=== PATIENT | male | born 1975 | race Caucasian/White ===

== ENCOUNTER → 2020-09-04 | Outpatient (REF) | payer OTHER ==
[2020-09-04 12:33] LABS: HEMATOCRIT 51.1 % (42.0-52.0); HEMOGLOBIN 17.5 g/dl (13.5-17.5); MEAN CORPUSCULAR HEMOGLOBIN 30.7 pg (27.0-33.0); MEAN CORPUSCULAR HGB CONC 34.2 g/dl (32.0-36.5); MEAN CORPUSCULAR VOLUME 89.6 fl (80.0-96.0); PLATELET COUNT, AUTOMATED 210 10^3/uL (150-450); WHITE BLOOD COUNT 7.4 10^3/uL (4.0-10.0)
[2020-09-04 13:11] LABS: ALT/SGPT 39 U/L (12-78); BILIRUBIN,TOTAL 0.6 MG/DL (0.2-1.0); BLOOD UREA NITROGEN 16 MG/DL (7-18); CALCIUM LEVEL 9.3 MG/DL (8.5-10.1); CARBON DIOXIDE LEVEL 28 MEQ/L (21-32); CHLORIDE LEVEL 104 MEQ/L (98-107); CREATININE FOR GFR 1.06 MG/DL (0.70-1.30); FERRITIN 138 NG/ML (26-388); GLOMERULAR FILTRATION RATE > 60.0 (>60); GLUCOSE, FASTING 116 MG/DL (70-100); IRON (FE) 109 UG/DL (65-175); PERCENT SATURATION 32.2 % (19.7-50.0); POTASSIUM SERUM 4.8 MEQ/L (3.5-5.1); SODIUM LEVEL 137 MEQ/L (136-145); TOTAL IRON BINDING CAPACITY 338 UG/DL (250-450); TOTAL PROTEIN 7.7 GM/DL (6.4-8.2)
== END ==
LOC: M SFHCADAM 08:58
PROVIDERS: ATTEND Physician Assistant
DX: K92.2 Gastrointestinal hemorrhage, unspecified (principal)

== ENCOUNTER → 2020-09-17 | Outpatient (REF) | payer OTHER ==
[2020-09-17 12:56] LABS: INR 0.93; PARTIAL THROMBOPLASTIN TIME 27.1 SECONDS (24.2-38.5); PROTHROMBIN TIME 12.7 SECONDS (12.5-14.3)
[2020-09-17 13:16] LABS: HEMOGLOBIN A1c 5.9 %
[2020-09-17 13:20] LABS: CHOLESTEROL RISK RATIO 5.06 (<5); FREE T4 1.15 NG/DL (0.76-1.46); THYROID STIMULATING HORMONE 2.67 uIU/ML (0.358-3.740)
== END ==
LOC: M SFHCADAM 08:07
PROVIDERS: ATTEND Physician Assistant
DX: E78.5 Hyperlipidemia, unspecified (principal); K92.2 Gastrointestinal hemorrhage, unspecified; R73.9 Hyperglycemia, unspecified

== ENCOUNTER → 2020-11-26 | Outpatient (CLI) | payer OTHER ==
[~2020-11-26] MED LIST: COQ1200C PO; FISH306C PO; GASTROGRAFIN SOLUTION 30ML (Q9963) As Ordered ONE; ISOVUE-370 76% 100ML VIAL As Ordered ONE; METO50TA7 PO; NOXI1TAB PO; RAMI1CAP22 PO; ROSU20TA5 PO; VITA500C24 PO; ZINC1TAB2 PO
--- NOTE | 2020-11-26 10:20 | REP ---
INDICATION: VASCULAR DISORDER OF INTESTINE, ? CELIAC ARTERY OC COMPARISON: None TECHNIQUE: Axial noncontrast images from the lung bases to the pubic symphysis with coronal and sagittal reformations were obtained in arterial phase of enhancement using angiographic technique. 100 cc Isovue 370 intravenous contrast material administered without complication. Post processing coronal and sagittal MIP reformations as well as volume rendered CT aortic angiogram obtained at the workstation. This CT examination was performed using the following dose reduction techniques: Automated exposure control, adjustment of mA and/or kv according to the patient's size, and use of iterative reconstruction technique. FINDINGS: The abdominal aorta and associated arterial vasculature are relatively normal in appearance and without atherosclerotic disease. No aortic aneurysm or dissection. The celiac axis and superior mesenteric artery both have a normal patent lumen and demonstrate normal angulation at their origin. There is no angiographic evidence to suggest celiac arterial occlusion or median arcuate ligament syndrome. Liver, spleen, pancreas, bilateral adrenal glands, kidneys and gallbladder are normal. The enteric system is without obstruction or acute inflammatory process. Normal terminal ileum identified in the right lower quadrant. Few scattered sigmoid diverticula noted without acute diverticulitis. Of note, there are mildly prominent lymph nodes in the mesentery of the sigmoid colon which are nonspecific and of uncertain clinical significance. Pelvis demonstrates normal bladder and age-appropriate prostate/seminal vesicles. Small fat containing left inguinal hernia noted. No ascites. No retroperitoneal adenopathy. No free air. Musculoskeletal structures are intact. Lung bases are clear. IMPRESSION: 1. Normal angiographic evaluation of the aorta and branch vessels including celiac axis and superior mesenteric artery. No evidence for celiac artery occlusions syndrome or median arcuate ligament syndrome. 2. No acute abdominopelvic pathology appreciated. 3. Few mildly prominent lymph nodes in the mesentery of the sigmoid colon which are otherwise nonspecific. Colonoscopy may be warranted to exclude the possibility of an underlying enteric pathologic process. <Electronically signed by Adryan Rudd > 11/26/20 [id number]
== END ==
LOC: M RAD 09:24
PROVIDERS: ATTEND Internal Medicine Gastroenterology
DX: K55.9 Vascular disorder of intestine, unspecified (principal); R19.7 Diarrhea, unspecified; K92.1 Melena
CPT/HCPCS: 74174; Q9967

== ENCOUNTER → 2020-11-26 | Outpatient (CLI) | payer OTHER ==
[~2020-11-26] MED LIST changes: -GASTROGRAFIN SOLUTION 30ML (Q9963) As Ordered ONE; -ISOVUE-370 76% 100ML VIAL As Ordered ONE
== END ==
LOC: M LABSMTC 12:26
PROVIDERS: ATTEND Anesthesiology
DX: Z01.812 Encounter for preprocedural laboratory examination (principal); Z20.822 Contact with and (suspected) exposure to COVID-19

== ENCOUNTER 2020-12-01 09:21 | Day surgery (SDC) | payer OTHER ==
[~2020-12-01] VITALS: Ht 175.3 cm; Wt 103.9 kg
[~2020-12-01 09:21] MED LIST changes: -COQ1200C PO; -FISH306C PO; +LIDOCAINE 2% 100MG/5ML SDV (FOR ANES.) As Ordered ONE; -NOXI1TAB PO; +NS 1,000 ML IV ONE; -VITA500C24 PO; -ZINC1TAB2 PO; +propofoL 200 MG/20 ML VIAL As Ordered ONE
[2020-12-01] MEDS ORDERED: VITA500C24 PO (09:43)
[2020-12-01] MEDS ORDERED: COQ1200C PO (09:43)
[2020-12-01] MEDS ORDERED: ZINC1TAB2 PO (09:43)
[2020-12-01] MEDS ORDERED: NOXI1TAB PO (09:43)
[2020-12-01] MEDS ORDERED: FISH306C PO (09:43)
--- NOTE | 2020-12-01 11:26 | ROOR ---
Patient Name: Avel Wright Procedure Date: 12/01/2020 10:48 AM Date of : 1975 Age: 45 Room: [facility] Gender: Male Note Status: Finalized Procedure: Colonoscopy Indications: Clinically significant diarrhea of unexplained origin, Hematochezia Providers: Jose NAGEL MD Referring MD: Selvin Suárez MD Requesting Provider: Medicines: Monitored Anesthesia Care Complications: No immediate complications. Procedure: Pre-Anesthesia Assessment: - The heart rate, respiratory rate, oxygen saturations, blood pressure, adequacy of pulmonary ventilation, and response to care were monitored throughout the procedure. The Colonoscope was introduced through the anus and advanced to 15 cm into the ileum. The colonoscopy was performed without difficulty. The patient tolerated the procedure well. The quality of the bowel preparation was fair. Findings: Inflammation characterized by congestion (edema), erythema and granularity was found in a continuous and circumferential pattern from the rectum to the sigmoid colon. This was moderate in severity. Biopsies were taken with a cold forceps for histology. The exam was otherwise normal throughout the examined colon. The terminal ileum appeared normal. Background biopsies were taken for histology with a cold forceps from the colon and terminal ileum. These biopsy specimens were sent to Pathology. Impression: - Preparation of the colon was suboptimal/fair. - Proctosigmoid colitis. Segmental inflammation was found from the rectum to the sigmoid colon (0-40 cm from anal verge), suggestive of ulcerative colitis. This was moderate in severity. Biopsied. - The perianal exam, the rest of the colon and 15 cm of the terminal ileum are normal. - Background biopsies were taken from the colon and terminal ileum. Recommendation: - Use Lialda 1.2 gm at 4 tabs PO daily. - Return to my office in 1 month. To discuss todays findings, my office will call you in the next few days to schedule a follow up appointment. - (the script was sent to your pharmacy on file) Procedure Code(s): --- Professional --- 44678, Colonoscopy, flexible; with biopsy, single or multiple Diagnosis Code(s): --- Professional --- K92.1, Melena (includes Hematochezia) R19.7, Diarrhea, unspecified K52.9, Noninfective gastroenteritis and colitis, unspecified CPT copyright 2019 [employer]. All rights reserved. The codes documented in this report are preliminary and upon principal accounts clerk review may be revised to meet current compliance requirements. Jose Nagel MD Jose NAGEL MD 12/01/2020 11:26:43 AM Electronically signed by Jose NAGEL MD Number of Addenda: 0 Note Initiated On: 12/01/2020 10:48 AM Estimated Blood Loss: Estimated blood loss: none.
[2020-12-01 11:40] VITALS: BP 136/97
== END 2020-12-01 11:51 | disposition home or self-care (01) ==
LOC: M OPP 09:21
PROVIDERS: ATTEND Internal Medicine Gastroenterology
DX: K52.9 Noninfective gastroenteritis and colitis, unspecified (principal); K92.1 Melena; D12.2 Benign neoplasm of ascending colon; D12.3 Benign neoplasm of transverse colon; D12.4 Benign neoplasm of descending colon; D12.7 Benign neoplasm of rectosigmoid junction; I10 Essential (primary) hypertension; E78.5 Hyperlipidemia, unspecified; G47.30 Sleep apnea, unspecified; Z95.1 Presence of aortocoronary bypass graft; Z95.5 Presence of coronary angioplasty implant and graft; Z79.899 Other long term (current) drug therapy; Z80.3 Family history of malignant neoplasm of breast; Z83.3 Family history of diabetes mellitus

== ENCOUNTER → 2021-01-16 | Outpatient (CLI) | payer OTHER ==
[~2021-01-16] MED LIST changes: +COQ1200C PO; +FISH306C PO; -LIDOCAINE 2% 100MG/5ML SDV (FOR ANES.) As Ordered ONE; +NOXI1TAB PO; -NS 1,000 ML IV ONE; +VITA500C24 PO; +ZINC1TAB2 PO; -propofoL 200 MG/20 ML VIAL As Ordered ONE
== END ==
LOC: M LAB 09:13
PROVIDERS: ATTEND Internal Medicine Gastroenterology
DX: K51.318 Ulcerative (chronic) rectosigmoiditis with other complication (principal)

== ENCOUNTER → 2021-09-09 | Outpatient (REF) | payer OTHER ==
[2021-09-09 14:19] LABS: CHOLESTEROL RISK RATIO 4.675 (<5)
== END ==
LOC: M LABDRWAD 12:49
PROVIDERS: ATTEND Internal Medicine Cardiovascular Disease
DX: I25.10 Atherosclerotic heart disease of native coronary artery without angina pectoris (principal); E78.2 Mixed hyperlipidemia

== ENCOUNTER → 2021-12-23 | Outpatient (REF) | payer OTHER ==
[2021-12-23 13:02] LABS: BASO # 0.1 10^3/uL (0.0-0.2); BASO % 0.9 % (0.0-1.0); EOS # 0.1 10^3/uL (0.0-0.5); EOS % 1.8 % (0.0-3.0); HEMATOCRIT 43.3 % (42.0-52.0); HEMOGLOBIN 14.8 g/dl (13.5-17.5); LYMPH # 2.2 10^3/uL (1.5-5.0); LYMPH % 39.2 % (24.0-44.0); MEAN CORPUSCULAR HEMOGLOBIN 30.1 pg (27.0-33.0); MEAN CORPUSCULAR HGB CONC 34.2 g/dl (32.0-36.5); MEAN CORPUSCULAR VOLUME 88.2 fl (80.0-96.0); MONO # 0.7 10^3/uL (0.0-0.8); MONO % 13.1 % (2.0-8.0); NEUTROPHILS # 2.5 10^3/uL (1.5-8.5); NEUTROPHILS % 44.8 % (36.0-66.0); PLATELET COUNT, AUTOMATED 208 10^3/uL (150-450); RED BLOOD COUNT 4.91 10^6/uL (4.30-6.10); WHITE BLOOD COUNT 5.5 10^3/uL (4.0-10.0)
[2021-12-23 13:43] LABS: ALBUMIN 4.1 GM/DL (3.2-5.2); ALT/SGPT 78 U/L (12-78); BILIRUBIN,TOTAL 0.5 MG/DL (0.2-1.0); BLOOD UREA NITROGEN 19 MG/DL (7-18); CALCIUM LEVEL 9.5 MG/DL (8.5-10.1); CARBON DIOXIDE LEVEL 27 MEQ/L (21-32); CHLORIDE LEVEL 109 MEQ/L (98-107); CREATININE FOR GFR 1.05 MG/DL (0.70-1.30); FREE T4 1.04 NG/DL (0.76-1.46); GLOMERULAR FILTRATION RATE > 60.0 (>60); GLUCOSE, FASTING 122 MG/DL (70-100); POTASSIUM SERUM 4.8 MEQ/L (3.5-5.1); SODIUM LEVEL 140 MEQ/L (136-145); TOTAL PROTEIN 7.1 GM/DL (6.4-8.2)
== END ==
LOC: M SFHCADAM 08:05
PROVIDERS: ATTEND Physician Assistant
DX: Z13.1 Encounter for screening for diabetes mellitus (principal); K51.90 Ulcerative colitis, unspecified, without complications; E78.5 Hyperlipidemia, unspecified

== ENCOUNTER → 2021-12-23 | Outpatient (REF) | payer OTHER ==
[2021-12-23 13:36] LABS: CHOLESTEROL RISK RATIO 3.368 (<5)
[2021-12-24 09:20] LABS: LDL DIRECT 68 mg/dL (0-99)
== END ==
LOC: M LABDRWAD 12:14
PROVIDERS: ATTEND Nurse Practitioner Adult Health
DX: I25.10 Atherosclerotic heart disease of native coronary artery without angina pectoris (principal); E78.2 Mixed hyperlipidemia

== ENCOUNTER → 2022-01-01 | Outpatient (CLI) | payer OTHER ==
[2022-01-01 12:50] LABS: BLOOD UREA NITROGEN 20 MG/DL (7-18); CARBON DIOXIDE LEVEL 27 MEQ/L (21-32); CHLORIDE LEVEL 106 MEQ/L (98-107); CREATININE FOR GFR 1.11 MG/DL (0.70-1.30); GLOMERULAR FILTRATION RATE > 60.0 (>60); GLUCOSE, FASTING 114 MG/DL (70-100); POTASSIUM SERUM 4.9 MEQ/L (3.5-5.1); SODIUM LEVEL 137 MEQ/L (136-145)
== END ==
LOC: M ADAMS 09:31
PROVIDERS: ATTEND Internal Medicine Cardiovascular Disease
DX: R79.9 Abnormal finding of blood chemistry, unspecified (principal); I25.10 Atherosclerotic heart disease of native coronary artery without angina pectoris; I10 Essential (primary) hypertension

== ENCOUNTER → 2022-05-14 | Outpatient (CLI) | payer OTHER ==
[2022-05-14 16:30] LABS: BASO # 0.1 10^3/uL (0.0-0.2); BASO % 0.5 % (0.0-1.0); EOS % 0.4 % (0.0-3.0); HEMATOCRIT 53.4 % (42.0-52.0); LYMPH # 1.9 10^3/uL (1.5-5.0); LYMPH % 18.9 % (24.0-44.0); MEAN CORPUSCULAR HGB CONC 33.7 g/dl (32.0-36.5); MEAN CORPUSCULAR VOLUME 86.1 fl (80.0-96.0); MONO # 0.8 10^3/uL (0.0-0.8); MONO % 8.5 % (2.0-8.0); NEUTROPHILS % 71.4 % (36.0-66.0); PLATELET COUNT, AUTOMATED 203 10^3/uL (150-450); WHITE BLOOD COUNT 9.8 10^3/uL (4.0-10.0)
[2022-05-14 16:55] LABS: ALBUMIN 4.1 GM/DL (3.2-5.2); ALT/SGPT 42 U/L (12-78); BILIRUBIN,TOTAL 0.9 MG/DL (0.2-1.0); BLOOD UREA NITROGEN 15 MG/DL (7-18); CALCIUM LEVEL 9.5 MG/DL (8.5-10.1); CARBON DIOXIDE LEVEL 26 MEQ/L (21-32); CHLORIDE LEVEL 106 MEQ/L (98-107); CREATININE FOR GFR 1.35 MG/DL (0.70-1.30); GLOMERULAR FILTRATION RATE > 60.0 (>60); GLUCOSE, FASTING 108 MG/DL (70-100); POTASSIUM SERUM 4.2 MEQ/L (3.5-5.1); SODIUM LEVEL 138 MEQ/L (136-145); TOTAL PROTEIN 7.2 GM/DL (6.4-8.2)
[2022-05-14 18:25] LABS: HEPATITIS B SURFACE ANTIGEN NEGATIVE (NEGATIVE)
== END ==
LOC: M ADAMS 13:18
PROVIDERS: ATTEND Internal Medicine Gastroenterology
DX: K51.30 Ulcerative (chronic) rectosigmoiditis without complications (principal)

== ENCOUNTER → 2022-07-01 | Outpatient (CLI) | payer OTHER | LOC: M PLALAB 09:58 | PROVIDERS: ATTEND Internal Medicine Infectious Disease | DX: R76.12 Nonspecific reaction to cell mediated immunity measurement of gamma interferon antigen response without active tuberculosis (principal); I51.7 Cardiomegaly ==

== ENCOUNTER → 2022-07-29 | Outpatient (REF) | payer OTHER ==
[2022-07-29 13:38] LABS: HEMATOCRIT 56.1 % (42.0-52.0); HEMOGLOBIN 18.7 g/dl (13.5-17.5); MEAN CORPUSCULAR HEMOGLOBIN 29.4 pg (27.0-33.0); MEAN CORPUSCULAR HGB CONC 33.3 g/dl (32.0-36.5); MEAN CORPUSCULAR VOLUME 88.3 fl (80.0-96.0); PLATELET COUNT, AUTOMATED 215 10^3/uL (150-450); RED BLOOD COUNT 6.35 10^6/uL (4.30-6.10); WHITE BLOOD COUNT 6.9 10^3/uL (4.0-10.0)
[2022-07-29 14:16] LABS: ALT/SGPT 43 U/L (12-78); BILIRUBIN,TOTAL 1.1 MG/DL (0.2-1.0); BLOOD UREA NITROGEN 14 MG/DL (7-18); CALCIUM LEVEL 9.1 MG/DL (8.5-10.1); CARBON DIOXIDE LEVEL 29 MEQ/L (21-32); CHLORIDE LEVEL 104 MEQ/L (98-107); CHOLESTEROL LEVEL 125 MG/DL (<200); CHOLESTEROL RISK RATIO 3.378 (<5); CREATININE FOR GFR 1.18 MG/DL (0.70-1.30); GLOMERULAR FILTRATION RATE > 60.0 (>60); GLUCOSE, FASTING 121 MG/DL (70-100); HDL CHOLESTEROL 37 MG/DL (>40); LDL CHOLESTEROL 70 MG/DL (<100); NON-HDL-C 88 MG/DL; POTASSIUM SERUM 4.9 MEQ/L (3.5-5.1); SODIUM LEVEL 135 MEQ/L (136-145); TOTAL PROTEIN 7.2 GM/DL (6.4-8.2); TRIGLYCERIDES LEVEL 92 MG/DL (<150)
[2022-07-29 14:58] LABS: HEMOGLOBIN A1c 5.8 %
== END ==
LOC: M SFHCADAM 07:56
PROVIDERS: ATTEND Physician Assistant
DX: R73.01 Impaired fasting glucose (principal); I25.10 Atherosclerotic heart disease of native coronary artery without angina pectoris; E78.5 Hyperlipidemia, unspecified; G47.33 Obstructive sleep apnea (adult) (pediatric); K51.90 Ulcerative colitis, unspecified, without complications; E34.9 Endocrine disorder, unspecified; Z12.5 Encounter for screening for malignant neoplasm of prostate

== ENCOUNTER 2022-11-04 08:01 | Outpatient (CLI) | payer OTHER ==
[~2022-11-04] VITALS: Ht 175.3 cm; Wt 103.4 kg
[~2022-11-04 08:01] MED LIST changes: +VEDOLIZUMAB 300 MG in NS 250 ML IV ONE
[2022-11-04 09:05] VITALS: BP 131/86
[2022-11-04 09:11] VITALS: BP 152/84
[2022-11-05] MEDS ORDERED: ISOVUE-370 76% 100ML VIAL As Ordered ONE (13:47)
== END 2022-11-04 09:30 ==
LOC: M INFU 08:01
PROVIDERS: ATTEND Internal Medicine Gastroenterology
DX: K51.90 Ulcerative colitis, unspecified, without complications (principal)
CPT/HCPCS: 96365; J3380

== ENCOUNTER 2022-11-22 08:04 | Outpatient (CLI) | payer OTHER ==
[~2022-11-22] VITALS: Ht 175.3 cm; Wt 102.3 kg
[2022-11-22 08:10] VITALS: BP 133/76
[2022-11-22] MEDS ORDERED: ASPI81TA26 PO (09:03)
[2022-11-22 09:12] VITALS: BP 135/65
== END 2022-11-22 09:15 | disposition home or self-care (01) ==
LOC: M INFU 08:04
PROVIDERS: ATTEND Internal Medicine Gastroenterology
DX: K51.90 Ulcerative colitis, unspecified, without complications (principal)
CPT/HCPCS: 96365; J3380

== ENCOUNTER 2023-02-14 08:25 | Outpatient (CLI) | payer OTHER ==
[~2023-02-14] VITALS: Ht 175.3 cm; Wt 103.4 kg
[2023-02-14 08:25] VITALS: BP 132/81
[~2023-02-14 08:25] MED LIST changes: +ASPI81TA26 PO
[2023-02-14 09:30] VITALS: BP 131/72
== END 2023-02-14 09:40 | disposition home or self-care (01) ==
LOC: M INFU 08:25
PROVIDERS: ATTEND Internal Medicine Gastroenterology
DX: K51.90 Ulcerative colitis, unspecified, without complications (principal)
CPT/HCPCS: 96365; J3380

== ENCOUNTER 2023-04-11 08:05 | Outpatient (CLI) | payer OTHER ==
[~2023-04-11] VITALS: Ht 175.3 cm; Wt 103.4 kg
[2023-04-11 08:05] VITALS: BP 138/89; O2SAT 96
[2023-04-11 09:12] VITALS: BP 177/106; O2SAT 95
== END 2023-04-11 09:15 | disposition home or self-care (01) ==
LOC: M INFU 08:05
PROVIDERS: ATTEND Internal Medicine Gastroenterology
DX: K51.90 Ulcerative colitis, unspecified, without complications (principal)
CPT/HCPCS: 96365; J3380

== ENCOUNTER 2023-06-06 08:00 | Outpatient (CLI) | payer OTHER ==
[~2023-06-06 08:00] MED LIST changes: -ROSU20TA5 PO; +ROSU20TA61 PO
[2023-06-06 08:08] VITALS: BP 144/92; TEMP 98.2; O2SAT 94
[2023-06-06 09:16] VITALS: BP 136/82; TEMP 98.3; O2SAT 94
== END 2023-06-06 09:18 | disposition home or self-care (01) ==
LOC: M INFU 08:00
PROVIDERS: ATTEND Internal Medicine Gastroenterology
DX: K51.90 Ulcerative colitis, unspecified, without complications (principal)
CPT/HCPCS: 96365; J3380

== ENCOUNTER → 2023-09-19 | Outpatient (REF) | payer OTHER ==
[~2023-09-19] MED LIST changes: -VEDOLIZUMAB 300 MG in NS 250 ML IV ONE
[2023-09-19 13:18] LABS: HEMATOCRIT 56.4 % (42.0-52.0); HEMOGLOBIN 19.4 g/dl (13.5-17.5); MEAN CORPUSCULAR HEMOGLOBIN 30.6 pg (27.0-33.0); MEAN CORPUSCULAR HGB CONC 34.4 g/dl (32.0-36.5); MEAN CORPUSCULAR VOLUME 88.8 fl (80.0-96.0); PLATELET COUNT, AUTOMATED 188 10^3/uL (150-450); RED BLOOD COUNT 6.35 10^6/uL (4.30-6.10); WHITE BLOOD COUNT 5.8 10^3/uL (4.0-10.0)
[2023-09-19 13:33] LABS: ALBUMIN 3.7 G/DL (3.2-5.2); ALKALINE PHOSPHATASE 53 U/L (46-116); ALT/SGPT 41 U/L (7.0-40); AST/SGOT 32 U/L (<34); BLOOD UREA NITROGEN 11 MG/DL (9-23); CALCIUM LEVEL 8.6 MG/DL (8.5-10.1); CARBON DIOXIDE LEVEL 28 MMOL/L (20-31); CHLORIDE LEVEL 105 MMOL/L (98-107); CHOLESTEROL LEVEL 131 MG/DL (<200); CHOLESTEROL RISK RATIO 4.39 (<5); CREATININE FOR GFR 0.97 MG/DL (0.70-1.30); GLOMERULAR FILTRATION RATE > 60.0 (>60); GLUCOSE, FASTING 154 MG/DL (60-100); HDL CHOLESTEROL 29.8 MG/DL (>40); LDL CHOLESTEROL 77.2 MG/DL (<100); NON-HDL-C 101.2 MG/DL; POTASSIUM SERUM 4.9 MMOL/L (3.5-5.1); SODIUM LEVEL 141 MMOL/L (136-145); TOTAL PROTEIN 6.8 G/DL (5.7-8.2); TRIGLYCERIDES LEVEL 120 MG/DL (<150)
[2023-09-19 13:39] LABS: CPK CREATINE PHOSPHOKINASE 415 U/L (46-171)
[2023-09-20 08:10] LABS: LDL DIRECT 82 mg/dL (0-99)
== END ==
LOC: M LABDRWAD 12:38
PROVIDERS: ATTEND Internal Medicine Cardiovascular Disease
DX: I25.10 Atherosclerotic heart disease of native coronary artery without angina pectoris (principal); I10 Essential (primary) hypertension; E78.2 Mixed hyperlipidemia

== ENCOUNTER 2023-11-21 08:14 | Outpatient (CLI) | payer OTHER ==
[~2023-11-21] VITALS: Ht 175.3 cm; Wt 117.5 kg
[~2023-11-21 08:14] MED LIST changes: +VEDOLIZUMAB 300 MG in NS 250 ML IV ONE
[2023-11-21 08:30] VITALS: BP 158/93; O2SAT 97
[2023-11-21 09:45] VITALS: BP 150/98; O2SAT 97
== END 2023-11-21 09:45 ==
LOC: M INFU 08:14
PROVIDERS: ATTEND Internal Medicine Gastroenterology
DX: K51.90 Ulcerative colitis, unspecified, without complications (principal)
CPT/HCPCS: 96365; J3380

== ENCOUNTER → 2023-12-28 | Outpatient (REF) | payer OTHER ==
[~2023-12-28] MED LIST changes: -VEDOLIZUMAB 300 MG in NS 250 ML IV ONE
== END ==
LOC: M SFHCADAM 12:03
PROVIDERS: ATTEND Physician Assistant
DX: I25.10 Atherosclerotic heart disease of native coronary artery without angina pectoris (principal); E78.5 Hyperlipidemia, unspecified; G47.33 Obstructive sleep apnea (adult) (pediatric); E66.01 Morbid (severe) obesity due to excess calories; Z68.36 Body mass index [BMI] 36.0-36.9, adult; D75.1 Secondary polycythemia

== ENCOUNTER → 2023-12-29 | Outpatient (REF) | payer OTHER ==
[2023-12-29 15:24] LABS: BASO % 0.7 % (0.0-1.0); EOS # 0.1 10^3/uL (0.0-0.5); EOS % 1.4 % (0.0-3.0); HEMATOCRIT 55.9 % (42.0-52.0); HEMOGLOBIN 19.2 g/dl (13.5-17.5); LYMPH # 1.4 10^3/uL (1.5-5.0); LYMPH % 23.9 % (24.0-44.0); MEAN CORPUSCULAR HEMOGLOBIN 30.3 pg (27.0-33.0); MEAN CORPUSCULAR HGB CONC 34.3 g/dl (32.0-36.5); MEAN CORPUSCULAR VOLUME 88.2 fl (80.0-96.0); MONO # 0.8 10^3/uL (0.0-0.8); MONO % 14.1 % (2.0-8.0); NEUTROPHILS # 3.5 10^3/uL (1.5-8.5); NEUTROPHILS % 59.7 % (36.0-66.0); PLATELET COUNT, AUTOMATED 207 10^3/uL (150-450); RED BLOOD COUNT 6.34 10^6/uL (4.30-6.10); WHITE BLOOD COUNT 5.8 10^3/uL (4.0-10.0)
[2023-12-29 15:56] LABS: HEMOGLOBIN A1c 7.6 % (4.0-6.0); THYROID STIMULATING HORMONE 3.363 uIU/ML (0.55-4.78)
[2023-12-29 15:58] LABS: FREE T4 0.96 NG/DL (0.89-1.76)
[2023-12-29 15:59] LABS: ALBUMIN 3.8 G/DL (3.2-5.2); ALKALINE PHOSPHATASE 57 U/L (46-116); ALT/SGPT 66 U/L (7.0-40); AST/SGOT 99 U/L (<34); BILIRUBIN,TOTAL 1.3 MG/DL (0.3-1.2); BLOOD UREA NITROGEN 17 MG/DL (9-23); CALCIUM LEVEL 8.7 MG/DL (8.5-10.1); CARBON DIOXIDE LEVEL 29 MMOL/L (20-31); CHLORIDE LEVEL 102 MMOL/L (98-107); CHOLESTEROL LEVEL 135 MG/DL (<200); CHOLESTEROL RISK RATIO 4.51 (<5); GLOMERULAR FILTRATION RATE > 60.0 (>60); GLUCOSE, FASTING 172 MG/DL (60-100); HDL CHOLESTEROL 29.9 MG/DL (>40); LDL CHOLESTEROL 77.7 MG/DL (<100); NON-HDL-C 105.1 MG/DL; SODIUM LEVEL 136 MMOL/L (136-145); TOTAL PROTEIN 6.8 G/DL (5.7-8.2); TRIGLYCERIDES LEVEL 137 MG/DL (<150)
== END ==
LOC: M SFHCADAM 08:45
PROVIDERS: ATTEND Physician Assistant
DX: I25.10 Atherosclerotic heart disease of native coronary artery without angina pectoris (principal); E78.5 Hyperlipidemia, unspecified; G47.33 Obstructive sleep apnea (adult) (pediatric); D75.1 Secondary polycythemia; E66.01 Morbid (severe) obesity due to excess calories; Z68.36 Body mass index [BMI] 36.0-36.9, adult

== ENCOUNTER → 2024-01-13 | Outpatient (REF) | payer OTHER | LOC: M SFHCADAM 08:07 | PROVIDERS: ATTEND Physician Assistant | DX: D75.1 Secondary polycythemia (principal); E11.9 Type 2 diabetes mellitus without complications; R74.8 Abnormal levels of other serum enzymes; Z53.9 Procedure and treatment not carried out, unspecified reason ==

== ENCOUNTER → 2024-01-13 | Outpatient (CLI) | payer OTHER ==
[~2024-01-13] MED LIST changes: -RAMI1CAP22 PO; +RAMI2.5C42 PO
== END ==
LOC: M RAD 07:23
PROVIDERS: ATTEND Physician Assistant
DX: R74.8 Abnormal levels of other serum enzymes (principal); K76.0 Fatty (change of) liver, not elsewhere classified

== ENCOUNTER 2024-01-16 08:00 | Outpatient (CLI) | payer OTHER ==
[~2024-01-16] VITALS: Ht 175.3 cm; Wt 105.0 kg
[2024-01-16 08:00] VITALS: BP 138/85; O2SAT 95
[~2024-01-16 08:00] MED LIST changes: +RAMI1CAP22 PO; -RAMI2.5C42 PO
[2024-01-16] MEDS: VEDOLIZUMAB 300 MG in NS 250 ML IV ONE (08:33)
[2024-01-16 09:15] VITALS: BP 138/79; O2SAT 95
== END 2024-01-16 09:15 ==
LOC: M INFU 08:00
PROVIDERS: ATTEND Internal Medicine Gastroenterology
DX: K51.30 Ulcerative (chronic) rectosigmoiditis without complications (principal)
CPT/HCPCS: 96365; J3380

== ENCOUNTER → 2024-01-24 | Outpatient (CLI) | payer OTHER ==
[2024-01-24 13:47] LABS: HEPATITIS B SURFACE ANTIBODY NEGATIVE (POSITIVE)
[2024-01-24 14:20] LABS: HEPATITIS C VIRUS ABY INDEX 0.03 INDEX (<0.8)
[2024-01-26 01:17] LABS: ANA (HEP2) Negative (.); ANTI-MITOCHONDRIAL ANTIBODY <20.0 Units (0.0-20.0); HEPATITIS B CORE ANTIBODY IGG Negative (Negative)
== END ==
LOC: M LABDRWAD 08:17
PROVIDERS: ATTEND Physician Assistant
DX: D75.1 Secondary polycythemia (principal); E11.9 Type 2 diabetes mellitus without complications; R74.8 Abnormal levels of other serum enzymes

== ENCOUNTER → 2024-03-22 | Outpatient (CLI) | payer OTHER ==
[~2024-03-22] MED LIST changes: +PROHANCE 279.3MG/ML 15ML VIAL As Ordered ONE; +PROHANCE 279.3MG/ML 5ML VIAL As Ordered ONE; -RAMI1CAP22 PO; +RAMI2.5C42 PO
== END ==
LOC: M RAD 11:16
PROVIDERS: ATTEND Internal Medicine Gastroenterology
DX: K83.01 Primary sclerosing cholangitis (principal); R94.5 Abnormal results of liver function studies; K51.30 Ulcerative (chronic) rectosigmoiditis without complications; K76.0 Fatty (change of) liver, not elsewhere classified; K76.89 Other specified diseases of liver
CPT/HCPCS: 74183; A9576

== ENCOUNTER → 2024-03-27 | Outpatient (REF) | payer OTHER ==
[~2024-03-27] MED LIST changes: -PROHANCE 279.3MG/ML 15ML VIAL As Ordered ONE; -PROHANCE 279.3MG/ML 5ML VIAL As Ordered ONE
[2024-03-27 12:55] LABS: ALBUMIN 4.2 G/DL (3.2-5.2); BILIRUBIN,DIRECT 0.2 MG/DL (<0.4); BILIRUBIN,TOTAL 0.8 MG/DL (0.3-1.2); IMMUNOGLOBULIN A 227.8 MG/DL (40-350); PERCENT SATURATION 32.2 % (19.7-50.0); TOTAL PROTEIN 6.9 G/DL (5.7-8.2)
== END ==
LOC: M LABDRWAD 12:24
PROVIDERS: ATTEND Internal Medicine Gastroenterology
DX: K51.30 Ulcerative (chronic) rectosigmoiditis without complications (principal); R94.5 Abnormal results of liver function studies

== ENCOUNTER → 2024-05-09 | Outpatient (REF) | payer OTHER | LOC: M SFHCADAM 17:29 | PROVIDERS: ATTEND Physician Assistant | DX: Z53.9 Procedure and treatment not carried out, unspecified reason (principal) ==

== ENCOUNTER → 2024-08-31 | Outpatient (REF) | payer OTHER ==
[~2024-08-31] MED LIST changes: -ROSU20TA61 PO; +ROSU20TA86 PO
[2024-08-31 19:09] LABS: ALBUMIN 3.5 G/DL (3.2-5.2); ALKALINE PHOSPHATASE 73 U/L (40-129); ALT/SGPT 36 U/L (7.0-40); AST/SGOT 20 U/L (<34); BILIRUBIN,TOTAL 0.6 MG/DL (0.3-1.2); BLOOD UREA NITROGEN 15 MG/DL (9-23); CALCIUM LEVEL 9.2 MG/DL (8.5-10.1); CARBON DIOXIDE LEVEL 26 MMOL/L (20-31); CHLORIDE LEVEL 107 MMOL/L (98-107); GLOMERULAR FILTRATION RATE > 60.0 (>56); GLUCOSE, FASTING 192 MG/DL (60-100); SODIUM LEVEL 137 MMOL/L (136-145); TOTAL PROTEIN 6.5 G/DL (5.7-8.2)
== END ==
LOC: M SFHCADAM 10:44
PROVIDERS: ATTEND Physician Assistant
DX: E11.9 Type 2 diabetes mellitus without complications (principal)

== ENCOUNTER → 2024-12-04 | Outpatient (REF) | payer OTHER ==
[2024-12-04 15:30] LABS: BASO % 0.3 % (0.0-1.0); EOS # 0.1 10^3/uL (0.0-0.5); EOS % 0.6 % (0.0-3.0); HEMATOCRIT 43.3 % (42.0-52.0); HEMOGLOBIN 15.1 g/dl (13.5-17.5); LYMPH # 1.4 10^3/uL (1.5-5.0); LYMPH % 15.7 % (24.0-44.0); MEAN CORPUSCULAR HEMOGLOBIN 30.7 pg (27.0-33.0); MEAN CORPUSCULAR HGB CONC 34.9 g/dl (32.0-36.5); MONO # 0.7 10^3/uL (0.0-0.8); MONO % 8.5 % (2.0-8.0); NEUTROPHILS # 6.4 10^3/uL (1.5-8.5); NEUTROPHILS % 74.6 % (36.0-66.0); PLATELET COUNT, AUTOMATED 224 10^3/uL (150-450); RED BLOOD COUNT 4.92 10^6/uL (4.30-6.10); WHITE BLOOD COUNT 8.6 10^3/uL (4.0-10.0)
[2024-12-04 15:33] LABS: FREE T4 1.15 NG/DL (0.89-1.76); THYROID STIMULATING HORMONE 2.831 uIU/ML (0.55-4.78)
[2024-12-04 15:34] LABS: VITAMIN B12 LEVEL 321 PG/ML (211-911)
[2024-12-04 15:37] LABS: ALKALINE PHOSPHATASE 70 U/L (40-129); ALT/SGPT 30 U/L (7.0-40); AST/SGOT 26 U/L (<34); BILIRUBIN,TOTAL 0.6 MG/DL (0.3-1.2); BLOOD UREA NITROGEN 16 MG/DL (9-23); CALCIUM LEVEL 9.2 MG/DL (8.5-10.1); CARBON DIOXIDE LEVEL 28 MMOL/L (20-31); CHLORIDE LEVEL 104 MMOL/L (98-107); CHOLESTEROL LEVEL 97 MG/DL (<200); CHOLESTEROL RISK RATIO 2.74 (<5); CREATININE FOR GFR 1.02 MG/DL (0.70-1.30); GLOMERULAR FILTRATION RATE > 60.0 (>56); GLUCOSE, FASTING 103 MG/DL (60-100); HDL CHOLESTEROL 35.4 MG/DL (>40); NON-HDL-C 61.6 MG/DL; POTASSIUM SERUM 4.5 MMOL/L (3.5-5.1); SODIUM LEVEL 140 MMOL/L (136-145); TOTAL PROTEIN 7.3 G/DL (5.7-8.2); TRIGLYCERIDES LEVEL 128 MG/DL (<150)
[2024-12-04 15:59] LABS: HEMOGLOBIN A1c 6.3 % (4.0-6.0)
== END ==
LOC: M SFHCADAM 10:00
PROVIDERS: ATTEND Physician Assistant
DX: E11.9 Type 2 diabetes mellitus without complications (principal); Z28.21 Immunization not carried out because of patient refusal; I10 Essential (primary) hypertension; Z12.5 Encounter for screening for malignant neoplasm of prostate; G47.33 Obstructive sleep apnea (adult) (pediatric); K75.81 Nonalcoholic steatohepatitis (NASH)

== ENCOUNTER → 2025-01-03 | Outpatient (REF) | payer OTHER | LOC: M SFHCADAM 07:23 | PROVIDERS: ATTEND Physician Assistant | DX: I48.0 Paroxysmal atrial fibrillation (principal) ==

== ENCOUNTER 2025-05-21 14:48 | Outpatient (CLI) | payer OTHER ==
[~2025-05-21] VITALS: Ht 175.3 cm; Wt 100.0 kg
[2025-05-21 15:30] VITALS: BP 133/82; O2SAT 96
[2025-05-21] MEDS: VEDOLIZUMAB 300 MG in NS 250 ML IV ONE (15:40)
[2025-05-21 16:19] VITALS: BP 146/85; O2SAT 100
== END 2025-05-21 16:20 ==
LOC: M INFU 14:48
PROVIDERS: ATTEND Internal Medicine Gastroenterology
DX: K51.90 Ulcerative colitis, unspecified, without complications (principal)
CPT/HCPCS: 96413; J3380

== ENCOUNTER 2025-06-18 16:00 | Outpatient (CLI) | payer OTHER ==
[~2025-06-18] VITALS: Ht 175.3 cm; Wt 98.1 kg
[2025-06-18] MEDS: VEDOLIZUMAB 300 MG in NS 250 ML IV ONE (16:29)
[2025-06-18 17:04] VITALS: BP 121/77; O2SAT 96
== END 2025-06-18 17:05 ==
LOC: M INFU 16:00
PROVIDERS: ATTEND Internal Medicine Gastroenterology
DX: K51.90 Ulcerative colitis, unspecified, without complications (principal)
CPT/HCPCS: 96413; J3380

== ENCOUNTER 2025-08-13 15:06 | Outpatient (CLI) | payer OTHER ==
[~2025-08-13] VITALS: Ht 175.3 cm; Wt 100.0 kg
[2025-08-13 15:20] VITALS: BP 118/78; O2SAT 98
[2025-08-13] MEDS: VEDOLIZUMAB 300 MG in NS 250 ML IV ONE (16:10)
[2025-08-13 16:50] VITALS: BP 123/78; O2SAT 97
== END 2025-08-13 16:50 ==
LOC: M INFU 15:06
PROVIDERS: ATTEND Internal Medicine Gastroenterology
DX: K51.90 Ulcerative colitis, unspecified, without complications (principal)
CPT/HCPCS: 96365; J3380

== ENCOUNTER 2025-10-24 17:00 | Outpatient (CLI) | payer OTHER ==
[~2025-10-24] VITALS: Ht 175.3 cm; Wt 104.0 kg
[2025-10-24 17:09] VITALS: BP 141/92; O2SAT 94
[2025-10-24] MEDS: VEDOLIZUMAB 300 MG in NS 250 ML IV ONE (17:29)
[2025-10-24 18:08] VITALS: BP 136/86; O2SAT 97
== END 2025-10-24 18:08 ==
LOC: M INFU 17:00
PROVIDERS: ATTEND Internal Medicine Gastroenterology
DX: K51.318 Ulcerative (chronic) rectosigmoiditis with other complication (principal)
CPT/HCPCS: 96413; J3380